=== PATIENT | female | born 1965 | race African-American/Black ===

== ENCOUNTER 2018-09-27 21:11 | Emergency (ER) | payer OTHER ==
[~2018-09-27] VITALS: Ht 160 cm; Wt 84.0 kg
[2018-09-27 23:16] VITALS: BP 190/116
== END 2018-09-27 23:30 | disposition home or self-care (01) ==
LOC: ER 21:11
DX: S80.862A Insect bite (nonvenomous), left lower leg, initial encounter (principal); S70.361A Insect bite (nonvenomous), right thigh, initial encounter; R03.0 Elevated blood-pressure reading, without diagnosis of hypertension; Z85.3 Personal history of malignant neoplasm of breast; Z90.11 Acquired absence of right breast and nipple; W57.XXXA Bitten or stung by nonvenomous insect and other nonvenomous arthropods, initial encounter; Y93.89 Activity, other specified; Y92.018 Other place in single-family (private) house as the place of occurrence of the external cause
CPT/HCPCS: 99283

== ENCOUNTER 2021-04-13 12:46 | Emergency (ER) | payer MEDICAID, OTHER ==
[~2021-04-13] VITALS: Ht 165.1 cm; Wt 80.0 kg
[2021-04-13 14:05] LABS: BASOPHILS % 1.1 % (0.0-2.0); EOSINOPHILS % 1.3 % (0.0-5.0); HEMATOCRIT. 38.2 % (36.0-48.0); HEMOGLOBIN. 13.1 g/dL (12.0-16.0); LYMPHOCYTES % 28.9 % (20.0-50.0); MEAN CORPUSCULAR HEMOGLOBIN 26.7 pg (28.0-32.0); MEAN CORPUSCULAR VOLUME 77.8 fL (81.0-99.0); MEAN PLATELET VOLUME 8.1 fl (7.4-10.4); MONOCYTES % 6.3 % (2.0-8.0); NEUTROPHILS % 62.4 % (40.0-76.0); PLATELET 281 x1000/uL (130-400); RED BLOOD CELL COUNT 4.91 mill/uL (4.2-5.4); RED CELL DISTRIBUTION WIDTH 15.5 % (11.6-14.6)
[2021-04-13 14:25] LABS: CHLORIDE 104 mEq/L (98-107)
[2021-04-13] MEDS ORDERED: ONDANSETRON 4MG ODT PO ONE (17:45)
[2021-04-13] MEDS ORDERED: ONDA4TAB11 PO (18:43)
[2021-04-13 18:58] VITALS: BP 152/68
== END 2021-04-13 19:06 | disposition home or self-care (01) ==
LOC: ER 12:46
DX: R07.89 Other chest pain (principal); I10 Essential (primary) hypertension; Z90.10 Acquired absence of unspecified breast and nipple
CPT/HCPCS: 36415; 71045; 80053; 83690; 83880; 84484; 85025; 85379; 93005; 99285; Q0162

== ENCOUNTER 2021-08-06 07:17 | Emergency (ER) | payer MEDICAID ==
[~2021-08-06] VITALS: Ht 160 cm; Wt 90.0 kg
[~2021-08-06 07:17] MED LIST: ONDA4TAB11 PO
[2021-08-06 10:19] VITALS: BP 128/70
== END 2021-08-06 10:19 | disposition home or self-care (01) ==
LOC: ER 07:19
DX: N64.4 Mastodynia (principal)
CPT/HCPCS: 76642; 99284; Z7610

== ENCOUNTER 2021-08-21 15:37 | Emergency (ER) | payer MEDICAID ==
[~2021-08-21] VITALS: Ht 160 cm; Wt 86.0 kg
[2021-08-21 19:13] VITALS: BP 110/76
[2021-08-21 19:25] LABS: BASOPHILS % 0.9 % (0.0-2.0); EOSINOPHILS % 5.1 % (0.0-5.0); HEMATOCRIT. 36.5 % (36.0-48.0); HEMOGLOBIN. 12.5 g/dL (12.0-16.0); LYMPHOCYTES % 34.6 % (20.0-50.0); MEAN CORPUSCULAR VOLUME 78.7 fL (81.0-99.0); MEAN PLATELET VOLUME 8.1 fl (7.4-10.4); MONOCYTES % 5.8 % (2.0-8.0); NEUTROPHILS % 53.6 % (40.0-76.0); PLATELET 298 x1000/uL (130-400); RED BLOOD CELL COUNT 4.64 mill/uL (4.2-5.4)
[2021-08-21 19:28] LABS: CHLORIDE 104 mEq/L (98-107)
== END 2021-08-21 22:46 | disposition home or self-care (01) ==
LOC: ER 15:37
DX: T85.898A Other specified complication of other internal prosthetic devices, implants and grafts, initial encounter (principal); I10 Essential (primary) hypertension; Z85.3 Personal history of malignant neoplasm of breast; Z90.12 Acquired absence of left breast and nipple; Y83.8 Other surgical procedures as the cause of abnormal reaction of the patient, or of later complication, without mention of misadventure at the time of the procedure; Y92.018 Other place in single-family (private) house as the place of occurrence of the external cause
CPT/HCPCS: 36415; 71045; 76642; 80053; 83880; 84484; 85025; 85379; 93971; 99285

== ENCOUNTER 2021-10-28 22:55 | Emergency (ER) | payer MEDICAID ==
[~2021-10-28] VITALS: Ht 160 cm; Wt 103.0 kg
[2021-10-28] MEDS ORDERED: PREDNISONE 20MG TABLET PO STA (23:15)
[2021-10-29 01:12] VITALS: BP 172/102
[2021-10-29] MEDS ORDERED: P20 PO (01:15)
[2021-10-29] MEDS ORDERED: HYDR-4622 TP (01:15)
[2021-10-29] MEDS ORDERED: DIPH25CA83 PO (01:15)
== END 2021-10-29 01:39 | disposition home or self-care (01) ==
LOC: ER 22:55
DX: T88.1XXA Other complications following immunization, not elsewhere classified, initial encounter (principal); I10 Essential (primary) hypertension
CPT/HCPCS: 99283; J7512

== ENCOUNTER 2022-10-17 18:18 | Emergency (ER) | payer MEDICAID ==
[~2022-10-17] VITALS: Ht 160 cm; Wt 87.0 kg
[~2022-10-17 18:18] MED LIST changes: +DIPH25CA83 PO; +HYDR-4622 TP; +P20 PO
[2022-10-17 18:31] VITALS: BP 132/78
[2022-10-17] MEDS ORDERED: IBUP-2029 MT (22:39)
[2022-10-17] MEDS ORDERED: BENZ200C52 MT (22:39)
== END 2022-10-17 22:55 | disposition home or self-care (01) ==
LOC: ER 18:18
DX: R05.9 Cough, unspecified (principal); B34.9 Viral infection, unspecified; I10 Essential (primary) hypertension; Z79.899 Other long term (current) drug therapy
CPT/HCPCS: 71045; 81025; 99283

== ENCOUNTER 2022-11-21 08:10 | Emergency (ER) | payer MEDICAID ==
[~2022-11-21] VITALS: Ht 167.6 cm; Wt 100.0 kg
[~2022-11-21 08:10] MED LIST changes: +BENZ200C52 MT; +IBUP-2029 MT
[2022-11-21 08:37] VITALS: BP 126/87
[2022-11-21] MEDS ORDERED: IBUPROFEN 600MG TABLET PO STA (11:08)
== END 2022-11-22 00:26 | disposition left against medical advice (07) ==
LOC: ER 08:10
DX: J06.9 Acute upper respiratory infection, unspecified (principal); I10 Essential (primary) hypertension
CPT/HCPCS: 99282

== ENCOUNTER 2023-07-06 20:28 | Emergency (ER) | payer MEDICAID ==
[~2023-07-06] VITALS: Ht 160 cm; Wt 98.0 kg
[2023-07-06 21:46] LABS: BASOPHILS % 0.9 % (0.0-2.0); DIFFERENTIAL COMMENT 0; EOSINOPHILS % 4.8 % (0.0-5.0); HEMATOCRIT. 38.7 % (36.0-48.0); HEMOGLOBIN. 13.2 g/dL (12.0-16.0); LYMPHOCYTES % 29.1 % (20.0-50.0); MEAN CORPUSCULAR HEMOGLOBIN 27.3 pg (28.0-32.0); MEAN CORPUSCULAR HGB CONC 34.2 g/dL (31.0-37.0); MEAN CORPUSCULAR VOLUME 79.7 fL (81.0-99.0); MEAN PLATELET VOLUME 8.2 fl (7.4-10.4); MONOCYTES % 7.3 % (2.0-8.0); NEUTROPHILS % 57.9 % (40.0-76.0); PLATELET 297 x1000/uL (130-400); RED BLOOD CELL COUNT 4.86 mill/uL (4.2-5.4); RED CELL DISTRIBUTION WIDTH 15.6 % (11.6-14.6)
[2023-07-06 21:51] VITALS: O2SAT 100
[2023-07-06 21:55] LABS: CHLORIDE 104 mEq/L (98-107); INDEX HEMOLYSI 1 (1-3); INDEX ICTERIC 1 (1-4); INDEX LIPEMIC 1 (1-3); SODIUM 140 mEq/L (136-145)
[2023-07-06 22:05] LABS: ALANINE AMINOTRANSFERASE 18 IU/L (13-61); ALBUMIN 3.9 g/dL (3.4-5.0); ASPARTATE AMINOTRANSFERASE 12 IU/L (15-37); BILIRUBIN TOTAL 0.4 mg/dL (0.1-1.0); CALCIUM 9.6 mg/dL (8.5-10.1); CARBON DIOXIDE 30 mEq/L (21-32); CREATININE 0.9 mg/dL (0.6-1.3); GLUCOSE 103 mg/dL (70-105); PROTEIN TOTAL 8.6 g/dL (6.0-8.3); TROPONIN I HIGH SENSITIVITY 5 ng/L (<54); UREA NITROGEN BLOOD 14 mg/dL (7-21)
[2023-07-07] MEDS ORDERED: MORPHINE SULFATE 4 MG/ML CPJ (NOT FOR IM USE) IV ONE
[2023-07-07] MEDS ORDERED: DIPHENHYDRAMINE 25MG CAPSULE PO ONE
[2023-07-07] MEDS ORDERED: ONDANSETRON HCL 4MG/2ML INJ IV ONE
[2023-07-07] MEDS ORDERED: METOCLOPRAMIDE HCL 10MG/2ML VIAL IV ONE
[2023-07-07 00:56] LABS: CLARITY URINE CLEAR (CLEAR); COLOR URINE YELLOW (YELLOW); GLUCOSE URINE NEGATIVE (NEGATIVE); KETONES URINE NEGATIVE (NEGATIVE); LEUKOCYTE ESTERASE URINE NEGATIVE (NEGATIVE); NITRITE URINE NEGATIVE (NEGATIVE); OCCULT BLOOD URINE NEGATIVE (NEGATIVE); PROTEIN URINE NEGATIVE (NEGATIVE); SPECIFIC GRAVITY URINE 1.016 (1.005-1.030)
[2023-07-07] MEDS ORDERED: ACET-2708 MT (02:32)
[2023-07-07] MEDS ORDERED: METO-293 MT (02:32)
[2023-07-07 02:50] VITALS: BP 110/72; PULSE 75; RESP 16; TEMP 98.4
== END 2023-07-07 02:51 | disposition home or self-care (01) ==
LOC: ER 20:28
DX: G43.909 Migraine, unspecified, not intractable, without status migrainosus (principal); Z85.9 Personal history of malignant neoplasm, unspecified; I10 Essential (primary) hypertension; Z79.899 Other long term (current) drug therapy
CPT/HCPCS: 36415; 71045; 80053; 81003; 81025; 84484; 85025; 93971; 99284

== ENCOUNTER 2023-10-22 18:48 | Emergency (ER) | payer MEDICAID ==
[~2023-10-22] VITALS: Ht 160 cm; Wt 88.0 kg
[~2023-10-22 18:48] MED LIST changes: +ACET-2708 MT; +METO-293 MT
[2023-10-22 19:00] VITALS: BP 165/94; O2SAT 100
[2023-10-22] MEDS ORDERED: TETRACAINE 0.5% OPHTH DROPS 4ML RIGHTEYE ONE (19:45)
[2023-10-22] MEDS ORDERED: FLUORESCEIN SODIUM 1MG/STRIP RIGHTEYE ONE (19:45)
[2023-10-22] MEDS ORDERED: BALANCED SALT IRRIG SOLN 15ML IR ONE (19:45)
[2023-10-22] MEDS ORDERED: BALANCED SALT IRRIG SOLN 15ML IR NR (21:15)
[2023-10-22] MEDS ORDERED: CIPR2.5D20 RIGHTEYE (22:22)
[2023-10-22] MEDS ORDERED: DOXY-456 MT (22:22)
[2023-10-22 23:16] VITALS: PULSE 84; RESP 17; TEMP 98
== END 2023-10-22 23:17 | disposition home or self-care (01) ==
LOC: ER 18:48
DX: S05.01XA Injury of conjunctiva and corneal abrasion without foreign body, right eye, initial encounter (principal); H01.003 Unspecified blepharitis right eye, unspecified eyelid; I10 Essential (primary) hypertension; X58.XXXA Exposure to other specified factors, initial encounter; Y93.89 Activity, other specified; Y92.89 Other specified places as the place of occurrence of the external cause; Y99.8 Other external cause status
CPT/HCPCS: 81025; 99283

== ENCOUNTER 2024-12-28 22:21 | Emergency (ER) | payer MEDICAID ==
[~2024-12-28] VITALS: Ht 160 cm; Wt 94.0 kg
[~2024-12-28 22:21] MED LIST changes: +CIPR2.5D20 RIGHTEYE; +DOXY100C74 MT; +ONDA-239 PO; -ONDA4TAB11 PO
[2024-12-28 22:50] VITALS: TEMP 36.7; O2SAT 100
[2024-12-29] MEDS ORDERED: LIDO700A15 TP (01:03)
[2024-12-29] MEDS ORDERED: NAPR-1176 MT (01:03)
[2024-12-29] MEDS ORDERED: CYCL5TAB3 MT (01:03)
[2024-12-29 01:17] VITALS: BP 154/95; PULSE 87; RESP 18; O2SAT 97
== END 2024-12-29 01:25 | disposition home or self-care (01) ==
LOC: ER 22:21
DX: R25.2 Cramp and spasm (principal); M79.605 Pain in left leg; I10 Essential (primary) hypertension; Z79.1 Long term (current) use of non-steroidal anti-inflammatories (NSAID); Z79.52 Long term (current) use of systemic steroids; Z98.890 Other specified postprocedural states
CPT/HCPCS: 93971; 99284